=== PATIENT | female | born 1990 ===

== ENCOUNTER 2024-05-15 04:25 | Day surgery (SDC) | payer BC ==
[2024-05-13 12:43] VITALS: BMI 23.1
[2024-05-15] MEDS ORDERED: ACETAMINOPHEN INJECTION 100 ML IVPB ONE (13:58)
[2024-05-15] MEDS ORDERED: ONDANSETRON 4 MG/2 ML VIAL ONE (14:02)
[2024-05-15] MEDS ORDERED: DEXAMETHASONE SOD PHOSPHATE 4 MG/1 ML VIAL ONE (14:02)
[2024-05-15] MEDS ORDERED: KETOROLAC TROMETHAMINE 30 MG/1 ML VIAL ONE (14:02)
[2024-05-15] MEDS ORDERED: LIDOCAINE HCL/PF 2% SDV 5ML VIAL ONE (14:02)
[2024-05-15] MEDS ORDERED: SEVOFLURANE 250 ML BTL ONE (14:04)
[2024-05-15] MEDS ORDERED: PROPOFOL 20 ML ONE ×2 (14:06→14:34)
[2024-05-15] MEDS ORDERED: MIDAZOLAM HCL 2 MG/2 ML SINGLE DOSE VIAL ONE ×2 (14:29→14:39)
[2024-05-15] MEDS: IODINE/POTASSIUM IODIDE 5%/10% 14 ML BOTTLE NR ONE (14:48)
[2024-05-15] MEDS: FERRIC SUBSULFATE 500 ML BOTTLE TP ONE (14:48)
[2024-05-15] MEDS ORDERED: ACETAMINOPHEN 325 MG TABLET (FP) PO PRN (15:21)
[2024-05-15] MEDS ORDERED: IBUPROFEN 400 MG TABLET (FP) PO PRN (15:21)
[2024-05-15 16:24] VITALS: BP 100/58; PULSE 58; RESP 18; TEMP 97.7
== END 2024-05-15 16:18 | disposition home or self-care (01) ==
LOC: JASU-SURG 04:25
PROVIDERS: ATTEND Obstetrics & Gynecology
PROC: 0UBC7ZX Excision of Cervix, Via Natural or Artificial Opening, Diagnostic (ICD-10-PCS; principal; 2024-05-15 14:00)
DX: N87.1 Moderate cervical dysplasia (principal)
CPT/HCPCS: 88305-TC; 88307-TC; J0131